=== PATIENT | male | born 2005 | race Caucasian/White ===

== ENCOUNTER 2025-06-06 20:56 | Emergency (ER) | payer MEDICAID ==
[~2025-06-06] VITALS: Ht 172.7 cm; Wt 74.0 kg
[2025-06-06 21:06] VITALS: O2SAT 99
[2025-06-06 21:55] VITALS: TEMP 36.9
[2025-06-06 22:05] VITALS: TEMP 98.5
[2025-06-06] MEDS: ACETAMINOPHEN 500MG TABLET PO ONE (22:05)
[2025-06-06] MEDS ORDERED: NAPR-1176 MT (22:20)
[2025-06-06] MEDS ORDERED: AMOX1TAB16 MT (22:20)
[2025-06-06 22:30] VITALS: O2SAT 99
[2025-06-06 22:37] VITALS: BP 144/74; PULSE 94; RESP 16
[2025-06-06] MEDS: KETOROLAC 15MG/ML VIAL IM ONE (22:37)
== END 2025-06-06 22:57 | disposition home or self-care (01) ==
LOC: ER 20:56
DX: S05.11XA Contusion of eyeball and orbital tissues, right eye, initial encounter (principal); F32.A Depression, unspecified; Y04.0XXA Assault by unarmed brawl or fight, initial encounter; Y93.89 Activity, other specified; Y92.89 Other specified places as the place of occurrence of the external cause; Y99.8 Other external cause status
CPT/HCPCS: 70450; 70486; 96372; 99285; J1885; Z7610 ×2